=== PATIENT | female | born 1935 | race Caucasian/White ===

== ENCOUNTER 2025-05-11 18:03 | Inpatient (IN) | payer MEDICARE, MEDICAID ==
[~2025-05-11] VITALS: Ht 162.6 cm; Wt 53.8 kg
[2025-05-11] MEDS ORDERED: 0.9% SODIUM CHLORIDE 10 ML SYRINGE IVP PRN (18:15)
[2025-05-11 18:32] LABS: PLATELET COUNT (AUTO) 515 K/uL (150-450); RED BLOOD CELL COUNT(AUTO) 4.18 MIL/uL (4.00-5.20); RED CELL DISTRIBUTION WIDTH 16.9 % (11.5-14.5); WHITE BLOOD COUNT (AUTO) 13.4 K/uL (4.5-11.0)
[2025-05-11 18:47] LABS: CALCIUM, TOTAL 8.2 mg/dL (8.8-10.5); CREATININE 0.37 mg/dL (0.60-1.30); GLOMERULAR FILTR. RATE CALC > 60 mL/min (>60); GLUCOSE,RANDOM 94 mg/dL (70-110); SODIUM SERUM 140 mmol/L (136-145); UREA NITROGEN, BLOOD 12 mg/dL (7-18)
[2025-05-11] MEDS: SODIUM CHLORIDE 0.9% 1,600 ML IV ONE (18:50)
[2025-05-11 18:51] LABS: ASPARTATE AMINOTRANSFERASE 52 U/L (15-37); CREATINE KINASE, TOTAL ONLY 12 U/L (26-192); TOTAL PROTEIN, SERUM 6.5 g/dL (6.4-8.2)
[2025-05-11] MEDS: CefTRIAXone 1 GM/DEXTROSE 50 ML IV ONE (18:51)
[2025-05-11 18:54] LABS: LACTIC ACID 1.6 mmol/L (0.4-2.0)
[2025-05-11 18:56] LABS: TROPONIN I-HIGH SENSITIVITY 8 ng/L (<51)
[2025-05-11] MEDS: POTASSIUM CHL 10 MEQ/WATER 50 ML IV SCH (19:40)
[2025-05-11 20:32] LABS: INFLUENZA TYPE A NEGATIVE FOR TYPE A (NEGATIVE); INFLUENZA TYPE B NEGATIVE FOR TYPE B (NEGATIVE)
[2025-05-11] MEDS: ACETAMINOPHEN 500 MG/ISO-OSM 50 ML IV ONE (20:57)
[2025-05-11 21:25] LABS: COVID AG,FIA SOURCE NASAL SWAB
[2025-05-11 21:56] LABS: SARS-COV2 (COVID) ANTIGEN,FIA Negative (Negative)
[2025-05-11] MEDS: VANCOMYCIN 1GM/WATER(PEG/NADA) 200 ML IV ONE (22:00)
[2025-05-11] MEDS ORDERED: VANCOMYCIN 1GM/WATER(PEG/NADA) 200 ML IV SCH (23:45)
[2025-05-11] MEDS ORDERED: ACETAMINOPHEN 325 MG TABLET PO PRN (23:45)
[2025-05-11] MEDS ORDERED: ONDANSETRON HCL 4 MG/2 ML VIAL IVP PRN (23:45)
[2025-05-12] MEDS: DEXTROSE 5%-0.45% SODIUM CHL 1,000 ML IV SCH (00:32)
[2025-05-12 05:09] VITALS: BP 115/64; PULSE 81; RESP 20; TEMP 98.1; O2SAT 98
[2025-05-12 06:44] LABS: PLATELET COUNT (AUTO) 448 K/uL (150-450); RED BLOOD CELL COUNT(AUTO) 3.52 MIL/uL (4.00-5.20); RED CELL DISTRIBUTION WIDTH 16.8 % (11.5-14.5); WHITE BLOOD COUNT (AUTO) 11.8 K/uL (4.5-11.0)
[2025-05-12 07:01] LABS: ASPARTATE AMINOTRANSFERASE 27 U/L (15-37); CALCIUM, TOTAL 7.7 mg/dL (8.8-10.5); CREATININE 0.28 mg/dL (0.60-1.30); GLOMERULAR FILTR. RATE CALC > 60 mL/min (>60); GLUCOSE,RANDOM 100 mg/dL (70-110); SODIUM SERUM 142 mmol/L (136-145); TOTAL PROTEIN, SERUM 5.5 g/dL (6.4-8.2); UREA NITROGEN, BLOOD 9 mg/dL (7-18)
[2025-05-12] MEDS ORDERED: VANCOMYCIN 750 MG/WATER(PEG) 150 ML IV SCH (08:00)
[2025-05-12 08:31] VITALS: BP 117/79; PULSE 91; RESP 18; TEMP 97.7; O2SAT 96
[2025-05-12] MEDS: ENOXAPARIN SODIUM 40 MG/0.4 ML PF SYRINGE SQ SCH (09:42)
[2025-05-12] MEDS: VANCOMYCIN 1GM/WATER(PEG/NADA) 200 ML IV SCH (09:42)
[2025-05-12] MEDS: PANTOPRAZOLE SODIUM 40 MG/VIAL IVP SCH (09:42)
[2025-05-12 11:05] VITALS: BP 124/75; PULSE 92; RESP 19; TEMP 97.8; O2SAT 95
[2025-05-12] MEDS: POTASSIUM CHL 10 MEQ/WATER 50 ML IV PRN (12:29)
[2025-05-12 15:50] VITALS: BP 136/90; PULSE 88; RESP 18; TEMP 98; O2SAT 95
[2025-05-12] MEDS: PIPERACILLIN SODIUM/TAZOBACTAM 2.25 GM in DEXTROSE 5%-WATER 50 ML IV SCH (17:56)
[2025-05-12] MEDS ORDERED: CefTRIAXone 1 GM/DEXTROSE 50 ML IV SCH (19:00)
[2025-05-12 19:31] VITALS: BP 108/75; PULSE 107; RESP 19; TEMP 98; O2SAT 92
[2025-05-13 00:44] VITALS: BP 130/85; PULSE 100; RESP 19; TEMP 97.9; O2SAT 96
[2025-05-13 06:17] VITALS: BP 154/119; PULSE 94; RESP 18; TEMP 97.7; O2SAT 96
[2025-05-13 09:06] VITALS: BP 107/51; PULSE 88; RESP 16; TEMP 97.8; O2SAT 93
[2025-05-13 11:29] LABS: APPEARANCE,URINE TURBID (CLEAR); GLUCOSE, URINE (UA) NEGATIVE (NEGATIVE); LEUKOCYTE ESTERASE ,URINE SMALL (NEGATIVE); NITRATE,URINE NEGATIVE (NEGATIVE); OCCULT BLOOD,URINE NEGATIVE (NEGATIVE); SPECIFIC GRAVITIY, URINE 1.024 (1.003-1.030)
[2025-05-13 12:38] VITALS: BP 102/67; PULSE 87; RESP 17; TEMP 97.3; O2SAT 99
[2025-05-13 15:33] LABS: PLATELET COUNT (AUTO) 414 K/uL (150-450); RED BLOOD CELL COUNT(AUTO) 3.82 MIL/uL (4.00-5.20); RED CELL DISTRIBUTION WIDTH 17.2 % (11.5-14.5); WHITE BLOOD COUNT (AUTO) 11.9 K/uL (4.5-11.0)
[2025-05-13 15:40] LABS: CALCIUM, TOTAL 7.9 mg/dL (8.8-10.5); CREATININE 0.42 mg/dL (0.60-1.30); GLOMERULAR FILTR. RATE CALC > 60 mL/min (>60); GLUCOSE,RANDOM 123 mg/dL (70-110); SODIUM SERUM 139 mmol/L (136-145); UREA NITROGEN, BLOOD 5 mg/dL (7-18)
[2025-05-13 16:00] VITALS: BP 100/83; PULSE 65; RESP 17; TEMP 97.5; O2SAT 97
[2025-05-13 20:00] VITALS: BP 107/76; PULSE 95; RESP 18; TEMP 97.5; O2SAT 98
[2025-05-14 01:02] VITALS: BP 134/75; PULSE 98; RESP 19; TEMP 97.5; O2SAT 96
[2025-05-14 04:50] VITALS: BP 125/78; PULSE 66; RESP 18; TEMP 98.2; O2SAT 96
[2025-05-14 10:33] LABS: PLATELET COUNT (AUTO) 400 K/uL (150-450); RED BLOOD CELL COUNT(AUTO) 3.38 MIL/uL (4.00-5.20); RED CELL DISTRIBUTION WIDTH 16.7 % (11.5-14.5); WHITE BLOOD COUNT (AUTO) 10.5 K/uL (4.5-11.0)
[2025-05-14 10:46] LABS: CALCIUM, TOTAL 7.6 mg/dL (8.8-10.5); CREATININE 0.51 mg/dL (0.60-1.30); GLOMERULAR FILTR. RATE CALC > 60 mL/min (>60); GLUCOSE,RANDOM 89 mg/dL (70-110); SODIUM SERUM 139 mmol/L (136-145); UREA NITROGEN, BLOOD 5 mg/dL (7-18)
[2025-05-14] MEDS: POTASSIUM CHLORIDE 20 MEQ ER TABLET PO PRN (11:11)
[2025-05-14 16:00] VITALS: BP 111/81; PULSE 92; RESP 18; TEMP 97.7; O2SAT 93
[2025-05-14 20:11] VITALS: BP 139/85; PULSE 101; RESP 19; TEMP 97.7; O2SAT 94
[2025-05-15 00:07] VITALS: BP 146/80; PULSE 93; RESP 18; TEMP 97.7; O2SAT 100
[2025-05-15 04:28] VITALS: BP 101/80; PULSE 57; RESP 16; TEMP 97.7; O2SAT 96
[2025-05-15 08:48] LABS: APPEARANCE,URINE HAZY (CLEAR); GLUCOSE, URINE (UA) NEGATIVE (NEGATIVE); LEUKOCYTE ESTERASE ,URINE LARGE (NEGATIVE); NITRATE,URINE NEGATIVE (NEGATIVE); OCCULT BLOOD,URINE SMALL (NEGATIVE); SPECIFIC GRAVITIY, URINE 1.009 (1.003-1.030)
[2025-05-15 09:02] LABS: SQUAMOUS EPITHELIAL CELL,UR Few /LPF (None Seen)
[2025-05-15] MEDS ORDERED: SODIUM CHLORIDE 0.9% 1,000 ML ONE (09:05)
[2025-05-15 09:09] VITALS: BP 88/54; PULSE 83; RESP 16; TEMP 97.7; O2SAT 100
[2025-05-15 12:14] VITALS: BP 106/69; PULSE 90; RESP 18; TEMP 97.5; O2SAT 99
[2025-05-15 12:54] LABS: PLATELET COUNT (AUTO) 389 K/uL (150-450); RED BLOOD CELL COUNT(AUTO) 3.32 MIL/uL (4.00-5.20); RED CELL DISTRIBUTION WIDTH 16.9 % (11.5-14.5); WHITE BLOOD COUNT (AUTO) 9.5 K/uL (4.5-11.0)
[2025-05-15 13:07] LABS: ASPARTATE AMINOTRANSFERASE 33 U/L (15-37); CALCIUM, TOTAL 7.7 mg/dL (8.8-10.5); CREATININE 0.49 mg/dL (0.60-1.30); GLOMERULAR FILTR. RATE CALC > 60 mL/min (>60); GLUCOSE,RANDOM 111 mg/dL (70-110); SODIUM SERUM 141 mmol/L (136-145); TOTAL PROTEIN, SERUM 5.3 g/dL (6.4-8.2); UREA NITROGEN, BLOOD 4 mg/dL (7-18)
[2025-05-15] MEDS: *CLINICAL-CEFEPIME DOSING CLINICAL ONE (15:42)
[2025-05-15] MEDS: CEFEPIME HCL 2 GM in DEXTROSE 5%-WATER 50 ML IV SCH (17:11)
[2025-05-15 19:55] VITALS: BP 97/85; PULSE 88; RESP 18; TEMP 97.7; O2SAT 98
[2025-05-15 23:41] VITALS: BP 101/58; PULSE 104; RESP 18; TEMP 98.2; O2SAT 97
[2025-05-16 03:49] VITALS: BP 136/78; PULSE 86; RESP 19; TEMP 97.7; O2SAT 97
[2025-05-16 07:33] LABS: CALCIUM, TOTAL 8.0 mg/dL (8.8-10.5); CREATININE 0.43 mg/dL (0.60-1.30); GLOMERULAR FILTR. RATE CALC > 60 mL/min (>60); GLUCOSE,RANDOM 92 mg/dL (70-110); SODIUM SERUM 143 mmol/L (136-145); UREA NITROGEN, BLOOD 3 mg/dL (7-18)
[2025-05-16 08:05] VITALS: BP 99/74; PULSE 107; RESP 18; TEMP 97.9; O2SAT 98
[2025-05-16] MEDS: VANCOMYCIN 500 MG/WATER(PEG) 100 ML IV SCH (09:12)
[2025-05-16 11:36] VITALS: BP 107/82; PULSE 93; RESP 17; TEMP 97.3; O2SAT 98
[2025-05-16 16:11] VITALS: BP 98/62; PULSE 84; RESP 18; TEMP 97.5; O2SAT 96
[2025-05-16 20:16] VITALS: BP 124/67; PULSE 90; RESP 17; TEMP 97.9; O2SAT 100
[2025-05-17 00:02] VITALS: BP 95/60; PULSE 74; RESP 18; TEMP 97.7; O2SAT 99
[2025-05-17 00:10] VITALS: BP 104/75; PULSE 89; RESP 17; TEMP 97.5; O2SAT 98
[2025-05-17 04:52] VITALS: BP 119/91; PULSE 86; RESP 19; TEMP 97.7; O2SAT 99
[2025-05-17 06:38] LABS: PLATELET COUNT (AUTO) 388 K/uL (150-450); RED BLOOD CELL COUNT(AUTO) 3.60 MIL/uL (4.00-5.20); RED CELL DISTRIBUTION WIDTH 16.7 % (11.5-14.5); WHITE BLOOD COUNT (AUTO) 9.1 K/uL (4.5-11.0)
[2025-05-17 06:48] LABS: CALCIUM, TOTAL 7.7 mg/dL (8.8-10.5); CREATININE 0.52 mg/dL (0.60-1.30); GLOMERULAR FILTR. RATE CALC > 60 mL/min (>60); GLUCOSE,RANDOM 92 mg/dL (70-110); SODIUM SERUM 140 mmol/L (136-145); UREA NITROGEN, BLOOD 5 mg/dL (7-18)
[2025-05-17] MEDS: VANCOMYCIN 1.25 GM/WATER(PEG) 250 ML IV SCH (08:00)
[2025-05-17 08:41] VITALS: BP 128/89; PULSE 98; RESP 19; TEMP 98; O2SAT 98
[2025-05-17 11:39] VITALS: BP 121/74; PULSE 76; RESP 18; TEMP 97.7; O2SAT 99
== END 2025-05-17 13:00 | DRG 871 ==
LOC: EMS 18:10 → EDH 23:43 → 5N 05-12 02:00
PROVIDERS: ADMIT Family Medicine; ATTEND Family Medicine
PROC: 05HB33Z Insertion of Infusion Device into Right Basilic Vein, Percutaneous Approach (ICD-10-PCS; principal; 2025-05-14)
PROC: B54MZZA Ultrasonography of Right Upper Extremity Veins, Guidance (ICD-10-PCS; 2025-05-14)
DX: A41.9 Sepsis, unspecified organism (principal); E43 Unspecified severe protein-calorie malnutrition; G93.41 Metabolic encephalopathy; J18.9 Pneumonia, unspecified organism; J90 Pleural effusion, not elsewhere classified; I10 Essential (primary) hypertension; Z68.20 Body mass index [BMI] 20.0-20.9, adult; D64.9 Anemia, unspecified; F03.90 Unspecified dementia, unspecified severity, without behavioral disturbance, psychotic disturbance, mood disturbance, and anxiety; R62.7 Adult failure to thrive; F41.9 Anxiety disorder, unspecified; Z20.822 Contact with and (suspected) exposure to COVID-19; G47.00 Insomnia, unspecified; E86.0 Dehydration; Z88.8 Allergy status to other drugs, medicaments and biological substances; Z93.1 Gastrostomy status
CPT/HCPCS: 36245; 36569; 51702; 70450; 71045; 71250; 76937; 80048; 80053; 80076; 80202; 81001; 82550; 83605; 83735; 83880; 84132; 84145; 84484; 85025; 85610; 87040; 87081; 87086; 87804; 92526; 92610; 93005; 97163; 97167; 97530; 97535; 99291; G0378; J0131; J0692; J0696; J1650; J2470; J2543; J3480; J7030; J7060; 36415-L1; 36415-TC